=== PATIENT | male | born 1955 | race African-American/Black ===

== ENCOUNTER 2022-02-28 11:38 | Inpatient (IN) | payer MEDICARE, MEDICAID ==
[~2022-02-28] VITALS: Ht 185.4 cm; Wt 71.7 kg
[2022-02-28] MEDS ORDERED: MORPHINE SULFATE 4 MG/ML CPJ (NOT FOR IM USE) IV STA ×2 (13:22→16:34)
[2022-02-28] MEDS ORDERED: ONDANSETRON HCL 4MG/2ML INJ IV STA ×2 (13:22→16:34)
[2022-02-28] MEDS ORDERED: SODIUM CHLORIDE 0.9% 1,000 ML IV ONE (13:30)
[2022-02-28 14:32] LABS: BASOPHILS % 0.7 % (0.0-2.0); EOSINOPHILS % 1.1 % (0.0-5.0); HEMATOCRIT. 25.3 % (42.0-52.0); HEMOGLOBIN. 8.2 g/dL (14.0-18.0); LYMPHOCYTES % 11.3 % (20.0-50.0); MEAN CORPUSCULAR HEMOGLOBIN 29.7 pg (28.0-32.0); MEAN CORPUSCULAR VOLUME 91.7 fL (80.0-94.0); MONOCYTES % 6.2 % (2.0-8.0); NEUTROPHILS % 80.7 % (40.0-76.0); PLATELET 314 x1000/uL (130-400); RED BLOOD CELL COUNT 2.76 mill/uL (4.7-6.1); RED CELL DISTRIBUTION WIDTH 16.1 % (11.6-14.6)
[2022-02-28 14:33] LABS: CHLORIDE 111 mEq/L (98-107)
[2022-02-28] MEDS ORDERED: MORPHINE SULFATE 2 MG/ML CPJ (NOT FOR IM USE) IV NR (22:30)
[2022-03-01] MEDS: MORPHINE SULFATE 2 MG/ML CPJ (NOT FOR IM USE) IV PRN ×2 (00:53→07:06)
[2022-03-01 01:50] VITALS: BP 155/89
[2022-03-01 08:00] VITALS: BP 159/93
[2022-03-01 08:27] LABS: BASOPHILS % 0.6 % (0.0-2.0); EOSINOPHILS % 0.4 % (0.0-5.0); HEMATOCRIT. 26.3 % (42.0-52.0); HEMOGLOBIN. 8.3 g/dL (14.0-18.0); LYMPHOCYTES % 17.7 % (20.0-50.0); MEAN CORPUSCULAR HEMOGLOBIN 29.2 pg (28.0-32.0); MEAN CORPUSCULAR VOLUME 92.2 fL (80.0-94.0); MEAN PLATELET VOLUME 8.2 fl (7.4-10.4); MONOCYTES % 10.7 % (2.0-8.0); NEUTROPHILS % 70.6 % (40.0-76.0); PLATELET 270 x1000/uL (130-400); RED BLOOD CELL COUNT 2.85 mill/uL (4.7-6.1)
[2022-03-01] MEDS: ENOXAPARIN 30MG/0.3ML SYR SUBCUT SCH (09:45)
[2022-03-01] MEDS: METOPROLOL TARTRATE 50MG TABLET PO SCH ×2 (09:45→17:00)
[2022-03-01] MEDS: LEVOTHYROXINE SODIUM 100MCG TABLET PO SCH (09:46)
[2022-03-01] MEDS: AMLODIPINE 10MG TABLET PO SCH (09:46)
[2022-03-01 12:00] VITALS: BP 153/87
[2022-03-01] MEDS ORDERED: TRANEXAMIC ACID 1,000 MG/10 ML IV ONE (14:45)
[2022-03-01] MEDS ORDERED: POLYMYXIN B SULFATE 500000 UNITS/VIAL ONE (15:31)
[2022-03-01] MEDS ORDERED: BACITRACIN 15GM TUBE TOP ONE (15:31)
[2022-03-01] MEDS ORDERED: VANCOMYCIN HCL 1 GM/VIAL ONE (15:31)
[2022-03-01] MEDS ORDERED: BUPIVACAINE HCL/PF 0.5% (5MG/ML) 30ML ONE (15:31)
[2022-03-01] MEDS ORDERED: EPINEPHRINE 1:1000 1 MG/ML AMP ONE (15:32)
[2022-03-01] MEDS ORDERED: MORPHINE SULFATE/PF 1MG/ML 10ML AMP ONE (15:32)
[2022-03-01] MEDS ORDERED: KETOROLAC 30MG/ML VIAL ONE (15:32)
[2022-03-01 16:00] VITALS: BP 147/86
[2022-03-01] MEDS ORDERED: TRANEXAMIC ACID 1,000 MG in SODIUM CHLORIDE 0.9% 100 ML IV NR ×4 (16:00)
[2022-03-01] MEDS ORDERED: NALOXONE HCL 0.4MG/ML VIAL IV PRN (16:15)
[2022-03-01] MEDS ORDERED: LIDOCAINE HCL 1% 20ML VIAL (Pyxis) INJ ONE (16:56)
[2022-03-01] MEDS ORDERED: SUCCINYLCHOLINE CHLORIDE 200MG/10ML IV ONE (16:56)
[2022-03-01] MEDS ORDERED: PROPOFOL 200MG/20ML VIAL IV ONE (16:56)
[2022-03-01] MEDS ORDERED: FENTANYL CITRATE/PF 50MCG/ML 2ML VIAL ONE (16:57)
[2022-03-01] MEDS ORDERED: ROCURONIUM BROMIDE 10MG/ML VIAL 5ML IV ONE (17:46)
[2022-03-01] MEDS ORDERED: HYDROMORPHONE HCL/PF 2MG/ML CPJ ONE (18:25)
[2022-03-01] MEDS ORDERED: GLYCOPYRROLATE 0.2 MG/ML 2ML VIAL ONE (19:11)
[2022-03-01] MEDS ORDERED: NEOSTIGMINE METHYLSULFATE 1MG/ML 10 ML VIAL ONE (19:11)
[2022-03-01] MEDS ORDERED: HYDROMORPHONE HCL/PF 2MG/ML CPJ IV PRN (19:45)
[2022-03-01] MEDS ORDERED: ONDANSETRON HCL 4MG/2ML INJ IV PRN (19:45)
[2022-03-01 20:00] VITALS: BP 157/77
[2022-03-01 20:25] LABS: HEMATOCRIT 23.9 % (42.0-52.0); HEMOGLOBIN 7.8 g/dL (14.0-18.0)
[2022-03-02] VITALS: BP 139/77
[2022-03-02 04:00] VITALS: BP 128/75
[2022-03-02 06:19] LABS: BASOPHILS % 0.2 % (0.0-2.0); EOSINOPHILS % 0.2 % (0.0-5.0); HEMATOCRIT. 27.2 % (42.0-52.0); HEMOGLOBIN. 8.6 g/dL (14.0-18.0); LYMPHOCYTES % 11.2 % (20.0-50.0); MEAN CORPUSCULAR HEMOGLOBIN 29.8 pg (28.0-32.0); MEAN CORPUSCULAR VOLUME 94.5 fL (80.0-94.0); MEAN PLATELET VOLUME 8.3 fl (7.4-10.4); MONOCYTES % 9.6 % (2.0-8.0); NEUTROPHILS % 78.8 % (40.0-76.0); PLATELET 290 x1000/uL (130-400); RED BLOOD CELL COUNT 2.88 mill/uL (4.7-6.1); RED CELL DISTRIBUTION WIDTH 16.1 % (11.6-14.6)
[2022-03-02] MEDS: LEVOTHYROXINE SODIUM 100MCG TABLET PO SCH (08:58)
[2022-03-02] MEDS: ENOXAPARIN 30MG/0.3ML SYR SUBCUT SCH (08:58)
[2022-03-02] MEDS: AMLODIPINE 10MG TABLET PO SCH (08:59)
[2022-03-02] MEDS: METOPROLOL TARTRATE 50MG TABLET PO SCH ×2 (09:00→17:44)
[2022-03-02 20:00] VITALS: BP 113/70
[2022-03-03] VITALS: BP 137/76
[2022-03-03 04:00] VITALS: BP 120/74
[2022-03-03] MEDS: LEVOTHYROXINE SODIUM 100MCG TABLET PO SCH (06:23)
[2022-03-03] MEDS: METOPROLOL TARTRATE 50MG TABLET PO SCH ×2 (09:00→18:18)
[2022-03-03] MEDS: AMLODIPINE 10MG TABLET PO SCH (09:56)
[2022-03-03] MEDS: ENOXAPARIN 30MG/0.3ML SYR SUBCUT SCH (09:57)
[2022-03-03 13:17] LABS: BASOPHILS % 0.3 % (0.0-2.0); EOSINOPHILS % 0.8 % (0.0-5.0); HEMATOCRIT. 26.7 % (42.0-52.0); HEMOGLOBIN. 8.8 g/dL (14.0-18.0); MEAN CORPUSCULAR HEMOGLOBIN 30.2 pg (28.0-32.0); MEAN CORPUSCULAR VOLUME 91.7 fL (80.0-94.0); MEAN PLATELET VOLUME 8.6 fl (7.4-10.4); MONOCYTES % 10.6 % (2.0-8.0); NEUTROPHILS % 73.3 % (40.0-76.0); PLATELET 288 x1000/uL (130-400); RED BLOOD CELL COUNT 2.91 mill/uL (4.7-6.1); RED CELL DISTRIBUTION WIDTH 15.3 % (11.6-14.6)
[2022-03-03 17:51] LABS: FOLIC ACID (FOLATE) SERUM 7.7 ng/mL (>5.38)
[2022-03-03] MEDS: HYDROCODONE/ACETAMINOPHEN 10/325MG TABLET PO PRN (19:42)
[2022-03-03 20:00] VITALS: BP 125/78
[2022-03-04] VITALS: BP 123/74
[2022-03-04] MEDS: LEVOTHYROXINE SODIUM 100MCG TABLET PO SCH (06:26)
[2022-03-04] MEDS: METOPROLOL TARTRATE 50MG TABLET PO SCH ×2 (10:29→19:50)
[2022-03-04] MEDS: AMLODIPINE 10MG TABLET PO SCH (10:29)
[2022-03-04] MEDS: HYDROCODONE/ACETAMINOPHEN 10/325MG TABLET PO PRN ×2 (10:30→19:51)
[2022-03-04] MEDS: ENOXAPARIN 30MG/0.3ML SYR SUBCUT SCH (10:30)
[2022-03-05 01:15] LABS: CORTISOL 18.1 ucg/dL
[2022-03-05] MEDS: LEVOTHYROXINE SODIUM 100MCG TABLET PO SCH (06:37)
[2022-03-05] MEDS: ENOXAPARIN 30MG/0.3ML SYR SUBCUT SCH (10:29)
[2022-03-05] MEDS: HYDROCODONE/ACETAMINOPHEN 10/325MG TABLET PO PRN ×2 (10:30→18:37)
[2022-03-05] MEDS: AMLODIPINE 10MG TABLET PO SCH (10:30)
[2022-03-05] MEDS: METOPROLOL TARTRATE 50MG TABLET PO SCH ×2 (10:30→17:00)
[2022-03-06 08:00] VITALS: BP 137/76
[2022-03-06] MEDS: AMLODIPINE 10MG TABLET PO SCH (08:21)
[2022-03-06] MEDS: LEVOTHYROXINE SODIUM 100MCG TABLET PO SCH (08:21)
[2022-03-06] MEDS: HYDROCODONE/ACETAMINOPHEN 10/325MG TABLET PO PRN (08:22)
[2022-03-06] MEDS: ENOXAPARIN 30MG/0.3ML SYR SUBCUT SCH (08:23)
[2022-03-06] MEDS: METOPROLOL TARTRATE 50MG TABLET PO SCH ×2 (09:00→17:40)
[2022-03-06 16:00] VITALS: BP 136/74
[2022-03-06 20:00] VITALS: BP 130/74
[2022-03-07] VITALS (7 sets, daily range): BP systolic 120–138; BP diastolic 65–83
[2022-03-07] MEDS: LEVOTHYROXINE SODIUM 100MCG TABLET PO SCH (06:39)
[2022-03-07] MEDS: METOPROLOL TARTRATE 50MG TABLET PO SCH ×2 (09:23→17:57)
[2022-03-07] MEDS: AMLODIPINE 10MG TABLET PO SCH (09:24)
[2022-03-07] MEDS: ENOXAPARIN 30MG/0.3ML SYR SUBCUT SCH (09:24)
[2022-03-07] MEDS: HYDROCODONE/ACETAMINOPHEN 10/325MG TABLET PO PRN ×2 (10:59→18:02)
[2022-03-07] MEDS: DOCUSATE SODIUM 250MG CAPSULE PO SCH (17:56)
[2022-03-08] VITALS: BP 135/65
[2022-03-08 04:00] VITALS: BP 121/73
[2022-03-08] MEDS: LEVOTHYROXINE SODIUM 100MCG TABLET PO SCH (06:47)
[2022-03-08 08:00] VITALS: BP 115/68
[2022-03-08] MEDS: METOPROLOL TARTRATE 50MG TABLET PO SCH ×2 (09:27→17:38)
[2022-03-08] MEDS: HYDROCODONE/ACETAMINOPHEN 10/325MG TABLET PO PRN ×2 (09:27→17:37)
[2022-03-08] MEDS: DOCUSATE SODIUM 250MG CAPSULE PO SCH (09:27)
[2022-03-08] MEDS: ENOXAPARIN 30MG/0.3ML SYR SUBCUT SCH (09:28)
[2022-03-08] MEDS: AMLODIPINE 10MG TABLET PO SCH (09:28)
[2022-03-08 12:00] VITALS: BP 134/69
[2022-03-08] MEDS ORDERED: LACTULOSE 20G/30ML UDC PO PRN (13:00)
[2022-03-08 16:00] VITALS: BP 96/59
[2022-03-08 20:15] VITALS: BP 105/63
[2022-03-09 00:35] VITALS: BP 122/73
[2022-03-09] MEDS: LEVOTHYROXINE SODIUM 100MCG TABLET PO SCH (06:39)
[2022-03-09] MEDS: HYDROCODONE/ACETAMINOPHEN 10/325MG TABLET PO PRN ×3 (06:39→21:32)
[2022-03-09 08:00] VITALS: BP 121/72
[2022-03-09] MEDS: AMLODIPINE 10MG TABLET PO SCH (09:00)
[2022-03-09] MEDS: METOPROLOL TARTRATE 50MG TABLET PO SCH ×2 (09:00→17:00)
[2022-03-09] MEDS: DOCUSATE SODIUM 250MG CAPSULE PO SCH (09:00)
[2022-03-09] MEDS: ENOXAPARIN 30MG/0.3ML SYR SUBCUT SCH (09:00)
[2022-03-09 12:00] VITALS: BP 132/72
[2022-03-09 13:34] LABS: BASOPHILS % 0.7 % (0.0-2.0); EOSINOPHILS % 4.5 % (0.0-5.0); HEMATOCRIT. 22.2 % (42.0-52.0); HEMOGLOBIN. 7.2 g/dL (14.0-18.0); LYMPHOCYTES % 26.4 % (20.0-50.0); MEAN CORPUSCULAR HEMOGLOBIN 29.6 pg (28.0-32.0); MEAN CORPUSCULAR VOLUME 91.3 fL (80.0-94.0); MEAN PLATELET VOLUME 7.3 fl (7.4-10.4); MONOCYTES % 12.4 % (2.0-8.0); PLATELET 404 x1000/uL (130-400); RED BLOOD CELL COUNT 2.43 mill/uL (4.7-6.1); RED CELL DISTRIBUTION WIDTH 15.5 % (11.6-14.6)
[2022-03-09 16:00] VITALS: BP 117/60
[2022-03-09 20:18] VITALS: BP 124/71
[2022-03-10 00:58] VITALS: BP 124/72
[2022-03-10 04:00] VITALS: BP 126/80
[2022-03-10] MEDS: LEVOTHYROXINE SODIUM 100MCG TABLET PO SCH (09:22)
[2022-03-10] MEDS: AMLODIPINE 10MG TABLET PO SCH (09:23)
[2022-03-10] MEDS: METOPROLOL TARTRATE 50MG TABLET PO SCH ×2 (09:23→17:00)
[2022-03-10] MEDS: ENOXAPARIN 30MG/0.3ML SYR SUBCUT SCH (09:23)
[2022-03-10] MEDS: HYDROCODONE/ACETAMINOPHEN 10/325MG TABLET PO PRN ×2 (09:43→21:41)
[2022-03-10] MEDS: DOCUSATE SODIUM 250MG CAPSULE PO SCH (10:15)
[2022-03-10 20:00] VITALS: BP 108/65
[2022-03-11] VITALS: BP 115/67
[2022-03-11 04:00] VITALS: BP 139/73
[2022-03-11 07:38] LABS: BASOPHILS % 0.3 % (0.0-2.0); EOSINOPHILS % 2.5 % (0.0-5.0); HEMATOCRIT. 21.8 % (42.0-52.0); HEMOGLOBIN. 7.2 g/dL (14.0-18.0); LYMPHOCYTES % 20.1 % (20.0-50.0); MEAN CORPUSCULAR HEMOGLOBIN 29.8 pg (28.0-32.0); MEAN CORPUSCULAR VOLUME 90.6 fL (80.0-94.0); MEAN PLATELET VOLUME 7.2 fl (7.4-10.4); NEUTROPHILS % 65.1 % (40.0-76.0); PLATELET 425 x1000/uL (130-400); RED BLOOD CELL COUNT 2.41 mill/uL (4.7-6.1); RED CELL DISTRIBUTION WIDTH 15.2 % (11.6-14.6)
[2022-03-11] MEDS: LEVOTHYROXINE SODIUM 100MCG TABLET PO SCH (08:37)
[2022-03-11] MEDS: METOPROLOL TARTRATE 50MG TABLET PO SCH ×2 (08:38→16:47)
[2022-03-11] MEDS: AMLODIPINE 10MG TABLET PO SCH (08:38)
[2022-03-11] MEDS: DOCUSATE SODIUM 250MG CAPSULE PO SCH (08:38)
[2022-03-11] MEDS: ENOXAPARIN 30MG/0.3ML SYR SUBCUT SCH (08:38)
[2022-03-11] MEDS ORDERED: SODIUM POLYSTYRENE SULFONATE 15 G/60 ML BOT PO SCH (11:00)
[2022-03-11 20:00] VITALS: BP 144/75
[2022-03-12] VITALS: BP 120/73
[2022-03-12 04:00] VITALS: BP 116/69
[2022-03-12 08:12] LABS: BASOPHILS % 0.8 % (0.0-2.0); EOSINOPHILS % 3.5 % (0.0-5.0); LYMPHOCYTES % 30.5 % (20.0-50.0); MEAN CORPUSCULAR HEMOGLOBIN 30.4 pg (28.0-32.0); MEAN CORPUSCULAR VOLUME 90.2 fL (80.0-94.0); MEAN PLATELET VOLUME 7.5 fl (7.4-10.4); MONOCYTES % 14.2 % (2.0-8.0); PLATELET 478 x1000/uL (130-400); RED BLOOD CELL COUNT 2.21 mill/uL (4.7-6.1); RED CELL DISTRIBUTION WIDTH 15.2 % (11.6-14.6)
[2022-03-12 08:46] LABS: HEMOGLOBIN. 6.7 g/dL (14.0-18.0)
[2022-03-12 08:47] LABS: HEMATOCRIT. 19.9 % (42.0-52.0)
[2022-03-12] MEDS: LEVOTHYROXINE SODIUM 100MCG TABLET PO SCH (11:43)
[2022-03-12] MEDS: METOPROLOL TARTRATE 50MG TABLET PO SCH ×2 (11:43→18:08)
[2022-03-12] MEDS: DOCUSATE SODIUM 250MG CAPSULE PO SCH (11:43)
[2022-03-12] MEDS: ENOXAPARIN 30MG/0.3ML SYR SUBCUT SCH (11:44)
[2022-03-12] MEDS: AMLODIPINE 10MG TABLET PO SCH (11:44)
[2022-03-12 20:00] VITALS: BP 129/66
[2022-03-12] MEDS: TRAZODONE HCL 50MG TABLET PO SCH (22:38)
[2022-03-13] VITALS: BP 118/64
[2022-03-13 04:00] VITALS: BP 106/63
[2022-03-13] MEDS: LEVOTHYROXINE SODIUM 100MCG TABLET PO SCH (06:22)
[2022-03-13 06:47] LABS: BASOPHILS % 0.5 % (0.0-2.0); HEMATOCRIT. 24.1 % (42.0-52.0); LYMPHOCYTES % 35.6 % (20.0-50.0); MEAN CORPUSCULAR HEMOGLOBIN 30.2 pg (28.0-32.0); MEAN PLATELET VOLUME 7.4 fl (7.4-10.4); MONOCYTES % 12.4 % (2.0-8.0); NEUTROPHILS % 47.5 % (40.0-76.0); PLATELET 505 x1000/uL (130-400); RED BLOOD CELL COUNT 2.65 mill/uL (4.7-6.1); RED CELL DISTRIBUTION WIDTH 15.3 % (11.6-14.6)
[2022-03-13 08:00] VITALS: BP 128/86
[2022-03-13] MEDS: METOPROLOL TARTRATE 50MG TABLET PO SCH ×2 (10:06→17:00)
[2022-03-13] MEDS: DOCUSATE SODIUM 250MG CAPSULE PO SCH (10:07)
[2022-03-13] MEDS: AMLODIPINE 10MG TABLET PO SCH (10:07)
[2022-03-13 12:00] VITALS: BP 131/71
[2022-03-13 12:07] LABS: BASOPHILS % 0.6 % (0.0-2.0); EOSINOPHILS % 4.2 % (0.0-5.0); LYMPHOCYTES % 21.6 % (20.0-50.0); MEAN CORPUSCULAR HEMOGLOBIN 29.5 pg (28.0-32.0); MEAN CORPUSCULAR VOLUME 91.6 fL (80.0-94.0); MEAN PLATELET VOLUME 7.2 fl (7.4-10.4); MONOCYTES % 13.2 % (2.0-8.0); NEUTROPHILS % 60.4 % (40.0-76.0); PLATELET 470 x1000/uL (130-400); RED BLOOD CELL COUNT 2.27 mill/uL (4.7-6.1); RED CELL DISTRIBUTION WIDTH 15.4 % (11.6-14.6)
[2022-03-13 12:26] LABS: HEMATOCRIT. 20.8 % (42.0-52.0); HEMOGLOBIN. 6.7 g/dL (14.0-18.0)
[2022-03-13 16:00] VITALS: BP 116/67
[2022-03-13] MEDS: IRON SUCROSE COMPLEX 100 MG/5 ML ML IV SCH (17:50)
[2022-03-13] MEDS: HYDROCODONE/ACETAMINOPHEN 5/325MG TABLET PO PRN (17:51)
[2022-03-13] MEDS: TRAZODONE HCL 50MG TABLET PO SCH (21:00)
[2022-03-14] MEDS: LEVOTHYROXINE SODIUM 100MCG TABLET PO SCH (06:55)
[2022-03-14 08:00] VITALS: BP 126/75
[2022-03-14 08:50] LABS: MEAN CORPUSCULAR HEMOGLOBIN 30.3 pg (28.0-32.0); MEAN CORPUSCULAR VOLUME 90.6 fL (80.0-94.0); PLATELET 406 x1000/uL (130-400); RED BLOOD CELL COUNT 2.21 mill/uL (4.7-6.1); RED CELL DISTRIBUTION WIDTH 15.1 % (11.6-14.6)
[2022-03-14] MEDS: DOCUSATE SODIUM 250MG CAPSULE PO SCH (08:53)
[2022-03-14] MEDS: METOPROLOL TARTRATE 50MG TABLET PO SCH ×2 (08:53→18:17)
[2022-03-14] MEDS: AMLODIPINE 10MG TABLET PO SCH (08:53)
[2022-03-14 09:17] LABS: HEMATOCRIT 20.1 % (42.0-52.0); HEMOGLOBIN 6.7 g/dL (14.0-18.0)
[2022-03-14 12:00] VITALS: BP 129/61
[2022-03-14] MEDS: HYDROCODONE/ACETAMINOPHEN 5/325MG TABLET PO PRN ×2 (13:28→20:51)
[2022-03-14 16:00] VITALS: BP 110/62
[2022-03-14] MEDS: IRON SUCROSE COMPLEX 100 MG/5 ML ML IV SCH (18:16)
[2022-03-14 20:00] VITALS: BP 110/62
[2022-03-14] MEDS: TRAZODONE HCL 50MG TABLET PO SCH (20:44)
[2022-03-15] VITALS: BP 116/62
[2022-03-15 04:00] VITALS: BP 125/62
[2022-03-15] MEDS: HYDROCODONE/ACETAMINOPHEN 5/325MG TABLET PO PRN ×3 (06:07→21:36)
[2022-03-15] MEDS: LEVOTHYROXINE SODIUM 100MCG TABLET PO SCH (06:07)
[2022-03-15 08:00] VITALS: BP 109/71
[2022-03-15] MEDS: DOCUSATE SODIUM 250MG CAPSULE PO SCH (10:43)
[2022-03-15] MEDS: AMLODIPINE 10MG TABLET PO SCH (10:44)
[2022-03-15] MEDS: METOPROLOL TARTRATE 50MG TABLET PO SCH ×2 (10:44→18:08)
[2022-03-15 12:00] VITALS: BP 119/86
[2022-03-15 16:00] VITALS: BP 128/72
[2022-03-15] MEDS: IRON SUCROSE COMPLEX 100 MG/5 ML ML IV SCH (18:08)
[2022-03-15 20:00] VITALS: BP 126/84
[2022-03-15] MEDS: TRAZODONE HCL 50MG TABLET PO SCH (21:00)
[2022-03-16] VITALS: BP 128/82
[2022-03-16] MEDS: LEVOTHYROXINE SODIUM 100MCG TABLET PO SCH (07:03)
[2022-03-16] MEDS: HYDROCODONE/ACETAMINOPHEN 5/325MG TABLET PO PRN (07:04)
[2022-03-16 08:00] VITALS: BP 119/72
[2022-03-16] MEDS: METOPROLOL TARTRATE 50MG TABLET PO SCH ×2 (09:00→17:31)
[2022-03-16] MEDS: DOCUSATE SODIUM 250MG CAPSULE PO SCH (10:04)
[2022-03-16] MEDS: AMLODIPINE 10MG TABLET PO SCH (10:06)
[2022-03-16 12:00] VITALS: BP 104/62
[2022-03-16 16:00] VITALS: BP 134/76
[2022-03-16] MEDS: IRON SUCROSE COMPLEX 100 MG/5 ML ML IV SCH (17:31)
[2022-03-16 20:00] VITALS: BP 105/55
[2022-03-16] MEDS: TRAZODONE HCL 50MG TABLET PO SCH ×2 (21:36→21:40)
[2022-03-16 22:22] VITALS: BP 100/60
[2022-03-17] VITALS: BP 108/60
[2022-03-17 04:00] VITALS: BP 110/62
[2022-03-17] MEDS: LEVOTHYROXINE SODIUM 100MCG TABLET PO SCH (07:00)
[2022-03-17] MEDS: HYDROCODONE/ACETAMINOPHEN 5/325MG TABLET PO PRN ×2 (07:01→17:46)
[2022-03-17 08:00] VITALS: BP 119/63
[2022-03-17] MEDS: DOCUSATE SODIUM 250MG CAPSULE PO SCH (09:00)
[2022-03-17] MEDS: METOPROLOL TARTRATE 50MG TABLET PO SCH ×2 (09:00→17:00)
[2022-03-17] MEDS: AMLODIPINE 10MG TABLET PO SCH (09:08)
[2022-03-17 12:00] VITALS: BP 134/77
[2022-03-17 16:00] VITALS: BP 122/64
[2022-03-18] VITALS (11 sets, daily range): BP systolic 117–140; BP diastolic 63–80
[2022-03-18] MEDS: HYDROCODONE/ACETAMINOPHEN 5/325MG TABLET PO PRN ×2 (03:50→11:10)
[2022-03-18] MEDS: LEVOTHYROXINE SODIUM 100MCG TABLET PO SCH (06:28)
[2022-03-18] MEDS: DOCUSATE SODIUM 250MG CAPSULE PO SCH (09:27)
[2022-03-18] MEDS: AMLODIPINE 10MG TABLET PO SCH (09:28)
[2022-03-18] MEDS: METOPROLOL TARTRATE 50MG TABLET PO SCH ×2 (09:29→17:00)
[2022-03-18 12:45] LABS: BASOPHILS % 0.6 % (0.0-2.0); EOSINOPHILS % 3.4 % (0.0-5.0); HEMATOCRIT. 23.5 % (42.0-52.0); LYMPHOCYTES % 19.7 % (20.0-50.0); MEAN CORPUSCULAR HEMOGLOBIN 30.6 pg (28.0-32.0); MEAN CORPUSCULAR VOLUME 90.3 fL (80.0-94.0); MEAN PLATELET VOLUME 7.7 fl (7.4-10.4); MONOCYTES % 14.5 % (2.0-8.0); NEUTROPHILS % 61.8 % (40.0-76.0); PLATELET 420 x1000/uL (130-400); RED CELL DISTRIBUTION WIDTH 15.8 % (11.6-14.6)
[2022-03-18] MEDS: TRAZODONE HCL 50MG TABLET PO SCH (20:21)
[2022-03-19] VITALS: BP 128/77
[2022-03-19 04:00] VITALS: BP 140/71
[2022-03-19] MEDS: HYDROCODONE/ACETAMINOPHEN 10/325MG TABLET PO PRN ×2 (04:56→10:04)
[2022-03-19] MEDS: LEVOTHYROXINE SODIUM 100MCG TABLET PO SCH (06:23)
[2022-03-19] MEDS: METOPROLOL TARTRATE 50MG TABLET PO SCH ×3 (09:00→18:29)
[2022-03-19] MEDS: DOCUSATE SODIUM 250MG CAPSULE PO SCH (09:53)
[2022-03-19] MEDS: AMLODIPINE 10MG TABLET PO SCH (09:54)
[2022-03-19] MEDS: TRAZODONE HCL 50MG TABLET PO SCH (21:43)
[2022-03-20 08:00] VITALS: BP 148/88
[2022-03-20] MEDS: DOCUSATE SODIUM 250MG CAPSULE PO SCH (10:29)
[2022-03-20] MEDS: LEVOTHYROXINE SODIUM 100MCG TABLET PO SCH (10:29)
[2022-03-20] MEDS: METOPROLOL TARTRATE 50MG TABLET PO SCH ×2 (10:29→18:07)
[2022-03-20] MEDS: AMLODIPINE 10MG TABLET PO SCH (10:30)
[2022-03-20] MEDS: HYDROCODONE/ACETAMINOPHEN 10/325MG TABLET PO PRN ×3 (10:36→22:30)
[2022-03-20 12:00] VITALS: BP 120/67
[2022-03-20 16:00] VITALS: BP 108/64
[2022-03-20 20:00] VITALS: BP 133/64
[2022-03-20] MEDS: TRAZODONE HCL 50MG TABLET PO SCH (22:25)
[2022-03-21] VITALS: BP 135/65
[2022-03-21 04:00] VITALS: BP 112/51
[2022-03-21] MEDS: LEVOTHYROXINE SODIUM 100MCG TABLET PO SCH (06:32)
[2022-03-21] MEDS: HYDROCODONE/ACETAMINOPHEN 10/325MG TABLET PO PRN ×4 (06:38→22:14)
[2022-03-21 08:00] VITALS: BP 125/65
[2022-03-21] MEDS: METOPROLOL TARTRATE 50MG TABLET PO SCH ×2 (09:00→17:33)
[2022-03-21] MEDS: DOCUSATE SODIUM 250MG CAPSULE PO SCH (09:25)
[2022-03-21] MEDS: AMLODIPINE 10MG TABLET PO SCH (09:26)
[2022-03-21 12:00] VITALS: BP 124/69
[2022-03-21 16:00] VITALS: BP 132/79
[2022-03-21 20:00] VITALS: BP 113/66
[2022-03-21] MEDS: TRAZODONE HCL 50MG TABLET PO SCH (22:00)
[2022-03-22] VITALS: BP 122/65
[2022-03-22 04:00] VITALS: BP 119/74
[2022-03-22] MEDS: HYDROCODONE/ACETAMINOPHEN 10/325MG TABLET PO PRN ×3 (04:20→20:14)
[2022-03-22] MEDS: LEVOTHYROXINE SODIUM 100MCG TABLET PO SCH (06:36)
[2022-03-22 08:00] VITALS: BP 126/64
[2022-03-22] MEDS: DOCUSATE SODIUM 250MG CAPSULE PO SCH (08:59)
[2022-03-22] MEDS: AMLODIPINE 10MG TABLET PO SCH (09:02)
[2022-03-22] MEDS: METOPROLOL TARTRATE 50MG TABLET PO SCH ×2 (09:03→17:00)
[2022-03-22 12:00] VITALS: BP 108/70
[2022-03-22 16:00] VITALS: BP 108/71
[2022-03-22 20:00] VITALS: BP 137/65
[2022-03-22] MEDS: TRAZODONE HCL 50MG TABLET PO SCH (21:00)
[2022-03-23] VITALS: BP 114/70
[2022-03-23 04:00] VITALS: BP 120/65
[2022-03-23] MEDS: HYDROCODONE/ACETAMINOPHEN 10/325MG TABLET PO PRN ×3 (04:03→22:18)
[2022-03-23] MEDS: LEVOTHYROXINE SODIUM 100MCG TABLET PO SCH (06:38)
[2022-03-23 08:00] VITALS: BP 137/75
[2022-03-23] MEDS: DOCUSATE SODIUM 250MG CAPSULE PO SCH (08:40)
[2022-03-23] MEDS: AMLODIPINE 10MG TABLET PO SCH (08:40)
[2022-03-23] MEDS: METOPROLOL TARTRATE 50MG TABLET PO SCH ×2 (08:40→17:00)
[2022-03-23 12:00] VITALS: BP 102/62
[2022-03-23 16:00] VITALS: BP 145/74
[2022-03-23] MEDS ORDERED: NALOXONE HCL 0.4MG/ML VIAL IV PRN (16:00)
[2022-03-23 20:53] VITALS: BP 114/54
[2022-03-23] MEDS: TRAZODONE HCL 50MG TABLET PO SCH (21:00)
[2022-03-24] VITALS: BP 112/64
[2022-03-24] MEDS: HYDROCODONE/ACETAMINOPHEN 10/325MG TABLET PO PRN (04:12)
[2022-03-24] MEDS: LEVOTHYROXINE SODIUM 100MCG TABLET PO SCH (06:55)
[2022-03-24 07:24] VITALS: BP 121/65
[2022-03-24 08:00] VITALS: BP 128/69
[2022-03-24] MEDS: AMLODIPINE 10MG TABLET PO SCH (09:00)
[2022-03-24] MEDS: DOCUSATE SODIUM 250MG CAPSULE PO SCH (09:00)
[2022-03-24] MEDS: METOPROLOL TARTRATE 50MG TABLET PO SCH ×2 (09:00→17:06)
[2022-03-24 12:00] VITALS: BP 145/71
[2022-03-24 15:17] LABS: BASOPHILS % 0.6 % (0.0-2.0); EOSINOPHILS % 3.4 % (0.0-5.0); HEMATOCRIT. 25.9 % (42.0-52.0); HEMOGLOBIN. 8.6 g/dL (14.0-18.0); LYMPHOCYTES % 23.5 % (20.0-50.0); MEAN CORPUSCULAR HEMOGLOBIN 30.1 pg (28.0-32.0); MEAN CORPUSCULAR VOLUME 91.3 fL (80.0-94.0); MEAN PLATELET VOLUME 8.1 fl (7.4-10.4); MONOCYTES % 14.2 % (2.0-8.0); NEUTROPHILS % 58.3 % (40.0-76.0); PLATELET 404 x1000/uL (130-400); RED BLOOD CELL COUNT 2.84 mill/uL (4.7-6.1); RED CELL DISTRIBUTION WIDTH 15.2 % (11.6-14.6)
[2022-03-24 16:00] VITALS: BP 129/57
[2022-03-24 20:00] VITALS: BP 126/72
[2022-03-24] MEDS: TRAZODONE HCL 50MG TABLET PO SCH (21:53)
[2022-03-25] VITALS: BP 128/70
[2022-03-25] MEDS ORDERED: TRAMADOL 50MG TABLET PO PRN (01:00)
[2022-03-25 04:00] VITALS: BP 128/76
[2022-03-25] MEDS: LEVOTHYROXINE SODIUM 100MCG TABLET PO SCH (06:30)
[2022-03-25 08:00] VITALS: BP 134/65
[2022-03-25] MEDS: HYDROCODONE/ACETAMINOPHEN 5/325MG TABLET PO PRN ×2 (09:43→17:42)
[2022-03-25] MEDS: DOCUSATE SODIUM 250MG CAPSULE PO SCH (09:44)
[2022-03-25] MEDS: AMLODIPINE 10MG TABLET PO SCH (09:44)
[2022-03-25] MEDS: METOPROLOL TARTRATE 50MG TABLET PO SCH ×2 (09:44→17:43)
[2022-03-25 12:00] VITALS: BP 134/74
[2022-03-25 16:00] VITALS: BP 120/60
[2022-03-25] MEDS: FAMOTIDINE 20MG TABLET PO SCH (19:59)
[2022-03-25 20:00] VITALS: BP 123/74
[2022-03-25] MEDS: TRAZODONE HCL 50MG TABLET PO SCH (20:01)
[2022-03-25] MEDS ORDERED: SODIUM POLYSTYRENE SULFONATE 15 G/60 ML BOT PO NR (22:30)
[2022-03-26] VITALS: BP 125/75
[2022-03-26 04:00] VITALS: BP 130/76
[2022-03-26] MEDS: HYDROCODONE/ACETAMINOPHEN 5/325MG TABLET PO PRN ×4 (06:33→21:18)
[2022-03-26] MEDS: LEVOTHYROXINE SODIUM 100MCG TABLET PO SCH (06:33)
[2022-03-26 08:00] VITALS: BP 141/74
[2022-03-26] MEDS: METOPROLOL TARTRATE 50MG TABLET PO SCH ×2 (09:00→17:00)
[2022-03-26] MEDS: DOCUSATE SODIUM 250MG CAPSULE PO SCH (09:21)
[2022-03-26] MEDS: AMLODIPINE 10MG TABLET PO SCH (09:22)
[2022-03-26 12:00] VITALS: BP 117/65
[2022-03-26 16:00] VITALS: BP 98/52
[2022-03-26 20:00] VITALS: BP 125/64
[2022-03-26] MEDS: TRAZODONE HCL 50MG TABLET PO SCH (21:00)
[2022-03-26] MEDS: FAMOTIDINE 20MG TABLET PO SCH (21:15)
[2022-03-27] VITALS: BP 121/64
[2022-03-27 04:00] VITALS: BP 113/68
[2022-03-27] MEDS: LEVOTHYROXINE SODIUM 100MCG TABLET PO SCH (06:32)
[2022-03-27 07:54] VITALS: BP 130/64
[2022-03-27] MEDS: DOCUSATE SODIUM 250MG CAPSULE PO SCH (08:46)
[2022-03-27] MEDS: AMLODIPINE 10MG TABLET PO SCH (08:46)
[2022-03-27] MEDS: METOPROLOL TARTRATE 50MG TABLET PO SCH ×2 (08:47→17:26)
[2022-03-27] MEDS: HYDROCODONE/ACETAMINOPHEN 5/325MG TABLET PO PRN ×2 (08:47→14:07)
[2022-03-27 11:44] VITALS: BP 106/65
[2022-03-27 16:01] VITALS: BP 114/69
[2022-03-27 17:45] LABS: CHLORIDE 105 mEq/L (98-107)
[2022-03-27] MEDS ORDERED: SODIUM POLYSTYRENE SULFONATE 15 G/60 ML BOT PO NR (19:00)
[2022-03-27 20:00] VITALS: BP 111/61
[2022-03-28] VITALS: BP 138/82
[2022-03-28] MEDS: TRAZODONE HCL 50MG TABLET PO SCH ×2 (00:59→21:00)
[2022-03-28] MEDS: FAMOTIDINE 20MG TABLET PO SCH ×2 (00:59→21:23)
[2022-03-28] MEDS: HYDROCODONE/ACETAMINOPHEN 5/325MG TABLET PO PRN ×2 (01:04→21:25)
[2022-03-28 04:00] VITALS: BP 121/65
[2022-03-28 08:00] VITALS: BP 123/71
[2022-03-28] MEDS: LEVOTHYROXINE SODIUM 100MCG TABLET PO SCH (08:14)
[2022-03-28] MEDS: DOCUSATE SODIUM 250MG CAPSULE PO SCH (08:14)
[2022-03-28] MEDS: METOPROLOL TARTRATE 50MG TABLET PO SCH ×2 (08:15→17:00)
[2022-03-28] MEDS: AMLODIPINE 10MG TABLET PO SCH (08:15)
[2022-03-28 12:00] VITALS: BP 102/54
[2022-03-28 15:24] LABS: HEMATOCRIT. 25.6 % (42.0-52.0); HEMOGLOBIN. 8.4 g/dL (14.0-18.0); MEAN CORPUSCULAR HEMOGLOBIN 29.7 pg (28.0-32.0); MEAN CORPUSCULAR VOLUME 91.1 fL (80.0-94.0); MEAN PLATELET VOLUME 7.6 fl (7.4-10.4); PLATELET 362 x1000/uL (130-400); RED BLOOD CELL COUNT 2.81 mill/uL (4.7-6.1); RED CELL DISTRIBUTION WIDTH 15.2 % (11.6-14.6)
[2022-03-28 16:00] VITALS: BP 114/67
[2022-03-28 16:29] LABS: PLATELET ESTIMATE NORMAL
[2022-03-28 20:00] VITALS: BP 135/71
[2022-03-29] VITALS: BP 129/84
[2022-03-29 04:00] VITALS: BP 118/72
[2022-03-29] MEDS: LEVOTHYROXINE SODIUM 100MCG TABLET PO SCH (06:25)
[2022-03-29 08:00] VITALS: BP 139/76
[2022-03-29] MEDS: DOCUSATE SODIUM 250MG CAPSULE PO SCH (09:29)
[2022-03-29] MEDS: AMLODIPINE 10MG TABLET PO SCH (09:31)
[2022-03-29] MEDS: METOPROLOL TARTRATE 50MG TABLET PO SCH (09:31)
[2022-03-29] MEDS: HYDROCODONE/ACETAMINOPHEN 5/325MG TABLET PO PRN ×2 (09:33→20:28)
[2022-03-29 12:00] VITALS: BP 116/64
[2022-03-29 16:00] VITALS: BP 111/60
[2022-03-29 20:00] VITALS: BP 127/61
[2022-03-29] MEDS: FAMOTIDINE 20MG TABLET PO SCH (20:28)
[2022-03-29] MEDS: TRAZODONE HCL 50MG TABLET PO SCH (20:29)
[2022-03-30] VITALS: BP 118/69
[2022-03-30] MEDS: HYDROCODONE/ACETAMINOPHEN 5/325MG TABLET PO PRN ×3 (01:45→22:07)
[2022-03-30 04:00] VITALS: BP 117/72
[2022-03-30 08:00] VITALS: BP 123/71
[2022-03-30] MEDS ORDERED: HYDROCODONE/ACETAMINOPHEN 5/325MG TABLET PO PRN (09:15)
[2022-03-30] MEDS: DOCUSATE SODIUM 250MG CAPSULE PO SCH (09:49)
[2022-03-30] MEDS: LEVOTHYROXINE SODIUM 100MCG TABLET PO SCH (09:49)
[2022-03-30 16:00] VITALS: BP 137/8
[2022-03-30 20:00] VITALS: BP 156/74
[2022-03-30] MEDS: TRAZODONE HCL 50MG TABLET PO SCH (21:00)
[2022-03-30] MEDS: FAMOTIDINE 20MG TABLET PO SCH (22:05)
[2022-03-31] VITALS: BP 153/76
[2022-03-31 04:00] VITALS: BP 138/74
[2022-03-31] MEDS: LEVOTHYROXINE SODIUM 100MCG TABLET PO SCH (06:30)
[2022-03-31] MEDS: DOCUSATE SODIUM 250MG CAPSULE PO SCH (09:30)
[2022-03-31] MEDS: HYDROCODONE/ACETAMINOPHEN 5/325MG TABLET PO PRN ×3 (10:13→23:51)
[2022-03-31 20:00] VITALS: BP 120/68
[2022-03-31] MEDS: TRAZODONE HCL 50MG TABLET PO SCH (22:14)
[2022-03-31] MEDS: FAMOTIDINE 20MG TABLET PO SCH (22:14)
[2022-04-01] VITALS: BP 148/74
[2022-04-01 04:00] VITALS: BP 120/68
[2022-04-01] MEDS: LEVOTHYROXINE SODIUM 100MCG TABLET PO SCH (06:34)
[2022-04-01] MEDS: HYDROCODONE/ACETAMINOPHEN 5/325MG TABLET PO PRN (06:35)
[2022-04-01 08:00] VITALS: BP 116/78
[2022-04-01] MEDS: DOCUSATE SODIUM 250MG CAPSULE PO SCH (08:37)
[2022-04-01 12:00] VITALS: BP 112/59
[2022-04-01 12:07] VITALS: BP 112/59
== END 2022-04-01 14:27 | disposition home or self-care (01) | DRG 522 ==
LOC: ER 11:38 → 6EST 15:32 → ENRESERV 23:27
PROVIDERS: ADMIT Internal Medicine; ATTEND Internal Medicine
PROC: 0SRR0JA Replacement of Right Hip Joint, Femoral Surface with Synthetic Substitute, Uncemented, Open Approach (ICD-10-PCS; principal; 2022-03-01)
PROC: 30233N1 Transfusion of Nonautologous Red Blood Cells into Peripheral Vein, Percutaneous Approach (ICD-10-PCS; 2022-03-18)
DX: S72.001A Fracture of unspecified part of neck of right femur, initial encounter for closed fracture (principal); N17.9 Acute kidney failure, unspecified; E87.1 Hypo-osmolality and hyponatremia; F33.1 Major depressive disorder, recurrent, moderate; Z20.822 Contact with and (suspected) exposure to COVID-19; I12.9 Hypertensive chronic kidney disease with stage 1 through stage 4 chronic kidney disease, or unspecified chronic kidney disease; D63.1 Anemia in chronic kidney disease; N18.30 Chronic kidney disease, stage 3 unspecified; E87.5 Hyperkalemia; M21.41 Flat foot [pes planus] (acquired), right foot; E83.51 Hypocalcemia; I51.7 Cardiomegaly; E89.0 Postprocedural hypothyroidism; G47.00 Insomnia, unspecified; Z59.02 Unsheltered homelessness; Z63.4 Disappearance and death of family member; Z87.442 Personal history of urinary calculi; W18.30XA Fall on same level, unspecified, initial encounter; Y93.89 Activity, other specified; Y92.89 Other specified places as the place of occurrence of the external cause; Y99.8 Other external cause status
CPT/HCPCS: 36415; 71045; 72170; 73502; 80048; 80053; 82330; 82533; 82607; 82746; 84443; 85014; 85018; 85025; 85027; 86850; 86900; 86920; 87426; 88311; 93306; 93970; 97110; 97116; 97162; 97164; 97166; 97530; 97535; 99285; C9803; J0330; J1170; J1650; J1885; J2270; J2274; J2405; J2704; J2710; J3010; J3370; J3490; J7030; J7050; P9016; U0003; U0005; C1776